=== PATIENT | female | born 1985 | race Caucasian/White ===

== ENCOUNTER 2016-11-25 23:55 | Inpatient (IN) | payer OTHER, MEDICAID ==
[~2016-11-25] VITALS: Ht 154.9 cm; Wt 103.9 kg
[2016-11-26] MEDS ORDERED: ZOLPIDEM TARTRATE 10 MG TABLET PO PRN (03:45)
[2016-11-26 04:39] VITALS: BP 129/88
[2016-11-26 08:30] VITALS: BP 145/87
[2016-11-26] MEDS ORDERED: FLUO-191 PO (09:35)
[2016-11-26] MEDS ORDERED: ALBU8HFA IH (09:35)
[2016-11-26] MEDS ORDERED: BUPR100 PO (09:35)
[2016-11-26] MEDS ORDERED: SIMV-259 PO (09:35)
[2016-11-26] MEDS ORDERED: BUDE10.22 IH (09:35)
[2016-11-26] MEDS ORDERED: ALPR1TAB7 PO (09:35)
[2016-11-26] MEDS: LORazepam 1 MG TABLET PO PRN ×3 (11:48→20:12)
[2016-11-26] MEDS: FLUoxetine HCL 20 MG CAPSULE PO SCH (11:49)
[2016-11-26] MEDS: INFLUENZA VIRUS VACCINE QVS 2016-17 (3YR+)/PF 60 MCG/0.5 ML SYRINGE IM ONE ×2 (12:37→14:55)
[2016-11-26] MEDS: PNEUMOCOCCAL VACCINE POLYVALENT 0.5 ML VIAL [PPSV23] IM ONE ×2 (12:37→14:55)
[2016-11-26 16:18] VITALS: BP 135/80
[2016-11-26] MEDS ORDERED: ACETAMINOPHEN 325 MG TABLET PO PRN (17:00)
[2016-11-26] MEDS ORDERED: IBUPROFEN 400 MG TABLET PO PRN (17:00)
[2016-11-26] MEDS: BUDESONIDE/FORMOTEROL FUMARATE 80-4.5 MCG/PUFF 6.9 GM INHALER IH SCH (17:00)
[2016-11-26] MEDS: ALBUTEROL SULFATE HFA 90 MCG/PUFF 8 GM INHALER IH SCH ×2 (18:00→18:56)
[2016-11-26] MEDS ORDERED: LITHIUM CARBONATE 300 MG CAPSULE PO SCH (21:00)
[2016-11-27 01:38] VITALS: BP 114/77
[2016-11-27] MEDS: ALBUTEROL SULFATE HFA 90 MCG/PUFF 8 GM INHALER IH SCH ×2 (06:01)
[2016-11-27 08:25] VITALS: BP 131/83
[2016-11-27 08:25] LABS: BASOPHILS % (AUTO) 0.3 % (0.0-2.0); EOSINOPHILS % (AUTO) 2.4 % (1.0-6.0); HEMATOCRIT 43.4 % (36-46); LYMPHOCYTES # (AUTO) 2.5 K/uL (1.0-4.8); LYMPHOCYTES % (AUTO) 24.2 % (22.0-44.0); MEAN CORPUSCULAR HEMOGLOBIN 30.7 pg (26.0-34.0); MEAN CORPUSCULAR HGB CONC 32.2 G/dL (31.0-37.0); MEAN CORPUSCULAR VOLUME 95 fL (80-100); MONOCYTES # (AUTO) 0.5 K/uL (0.1-1.0); MONOCYTES % (AUTO) 4.4 % (2.0-9.0); NEUTROPHILS # (AUTO) 7.2 K/uL (1.8-7.7); NEUTROPHILS % (AUTO) 68.7 % (40.0-70.0); PLATELET COUNT (AUTO) 238 K/uL (150-450); RED BLOOD CELL COUNT(AUTO) 4.54 MIL/uL (4.00-5.20); RED CELL DISTRIBUTION WIDTH 15.7 % (11.5-14.5); WHITE BLOOD COUNT (AUTO) 10.4 K/uL (4.5-11.0)
[2016-11-27 08:47] LABS: ALANINE AMINOTRANSFERASE 37 U/L (12-78); ALBUMIN 3.4 g/dL (3.4-5.0); ANION GAP 7 mmol/L (8-16); ASPARTATE AMINOTRANSFERASE 14 U/L (15-37); BILIRUBIN,TOTAL 0.5 mg/dL (0.1-1.0); CALCIUM, TOTAL 8.8 mg/dL (8.8-10.5); CARBON DIOXIDE 29 mmol/L (22-29); CHLORIDE 100 mmol/L (98-107); CHOL/HDL RATIO 4.1 (3.9-5.7); CREATININE 0.66 mg/dL (0.60-1.30); GLOMERULAR FILTR. RATE CALC > 60 mL/min (>60); HEMOGLOBIN A1C 5.2 % (4.5-6.2); POTASSIUM 4.1 mmol/L (3.5-5.1); SODIUM SERUM 136 mmol/L (136-145); THYROID STIMULATING HORMONE 1.18 uIU/mL (0.36-3.74); TOTAL PROTEIN, SERUM 7.8 g/dL (6.4-8.2); UREA NITROGEN, BLOOD 8 mg/dL (7-18)
[2016-11-27] MEDS ORDERED: SIMVASTATIN 10 MG TABLET PO SCH (09:00)
[2016-11-27] MEDS: FLUoxetine HCL 20 MG CAPSULE PO SCH (09:17)
[2016-11-27] MEDS: BUDESONIDE/FORMOTEROL FUMARATE 80-4.5 MCG/PUFF 6.9 GM INHALER IH SCH (09:21)
[2016-11-27] MEDS: LORazepam 1 MG TABLET PO PRN ×2 (09:22→11:38)
[2016-11-27] MEDS ORDERED: FLUO-191 PO (11:59)
[2016-11-27] MEDS ORDERED: LITH300C3 PO (11:59)
[2016-11-27] MEDS ORDERED: ALBUTEROL SULFATE HFA 90 MCG/PUFF 8 GM INHALER IH PRN (12:00)
== END 2016-11-27 14:00 | disposition home or self-care (01) | DRG 754 ==
LOC: B2S 11-26 03:45
PROVIDERS: ADMIT Psychiatry & Neurology Psychiatry; ATTEND Psychiatry & Neurology Psychiatry
DX: F32.9 Major depressive disorder, single episode, unspecified (principal); R45.851 Suicidal ideations; J45.909 Unspecified asthma, uncomplicated; E78.5 Hyperlipidemia, unspecified; G43.909 Migraine, unspecified, not intractable, without status migrainosus; Z98.890 Other specified postprocedural states; Z98.51 Tubal ligation status; Z90.710 Acquired absence of both cervix and uterus; Z28.21 Immunization not carried out because of patient refusal
CPT/HCPCS: 83036; 84443; 90471; J3535

== ENCOUNTER 2020-06-12 05:55 | Day surgery (SDC) | payer OTHER ==
[~2020-06-12] VITALS: Ht 154.9 cm; Wt 133.0 kg
[~2020-06-12 05:55] MED LIST: ALBU8HFA IH; ALPR-342 PO; FLUT1BLS10 IH; GABA-1181 PO; HYDR-1475 PO; LISI-660 PO; MONT-35 PO; OMEP20 PO; RISP1TAB27 PO; SIMV-259 PO; SITA100 PO; TRAZ-252 PO
[2020-06-12] MEDS ORDERED: SODIUM CHLORIDE 0.9% 1,000 ML ONE (06:05)
[2020-06-12] MEDS ORDERED: SODIUM CHLORIDE 0.9% 1,000 ML IV ONE (06:30)
[2020-06-12 07:16] LABS: GLUCOMETER DEV NAME(LOC) SDS.; GLUCOSE,POINT OF CARE 86 MG/DL (70-110)
[2020-06-12] MEDS ORDERED: MIDAZOLAM HCL 2 MG/2 ML VIAL ONE (08:06)
[2020-06-12] MEDS ORDERED: FentaNYL CITRATE-PF 100 MCG/2 ML VIAL ONE (08:06)
[2020-06-12] MEDS ORDERED: MethylPREDNISolone SOD SUCC 125 MG/2 ML VIAL ONE (08:30)
[2020-06-12] MEDS ORDERED: MethylPREDNISolone SOD SUCC 125 MG/2 ML VIAL IVP ONE (08:30)
[2020-06-12] MEDS ORDERED: ALBUTEROL SULFATE 2.5 MG/0.5 ML NEB SOLUTION NEB ONE ×2 (09:17→17:33)
[2020-06-12] MEDS ORDERED: LIDOCAINE 2% 30 ML JELLY ONE (17:33)
[2020-06-12] MEDS ORDERED: BENZOCAINE 20% 50 MCG/SPRAY 57 GM ONE (17:33)
[2020-06-12] MEDS ORDERED: LIDOCAINE 4% 50 ML SOLUTION ONE (17:33)
[2020-06-12] MEDS ORDERED: OXYGEN THERAPY IH SCH (20:00)
== END 2020-06-12 10:40 | disposition home or self-care (01) ==
LOC: SURGERY 05:55
PROVIDERS: ATTEND Internal Medicine Critical Care Medicine
DX: J38.4 Edema of larynx (principal); B37.0 Candidal stomatitis; J44.9 Chronic obstructive pulmonary disease, unspecified; G47.30 Sleep apnea, unspecified; Z20.828 Contact with and (suspected) exposure to other viral communicable diseases; Z98.51 Tubal ligation status; Z98.890 Other specified postprocedural states; Z90.710 Acquired absence of both cervix and uterus; Z90.721 Acquired absence of ovaries, unilateral
CPT/HCPCS: 31623; 31624; 71045; 82962; 84703; 87015; 87070; 87101; 87205; 87206; 87220; 87635; 88108; 88312; J2250; J2930; J3010; J7030; J7613; Z7610